=== PATIENT | female | born 2000 ===

== ENCOUNTER 2021-07-02 16:16 | Emergency (ER) | END 2021-07-02 18:14 | disposition home or self-care (01) | LOC: ERS 16:16 | DX: S06.0X9A Concussion with loss of consciousness of unspecified duration, initial encounter (principal); S50.02XA Contusion of left elbow, initial encounter; S30.0XXA Contusion of lower back and pelvis, initial encounter; W18.30XA Fall on same level, unspecified, initial encounter | CPT/HCPCS: 99283 ==